=== PATIENT | male | born 2000 | race Caucasian/White ===

== ENCOUNTER 2021-01-03 11:12 | Emergency (ER) | payer OTHER ==
[~2021-01-03 11:12] MED LIST: DOXYCYCLINE HY100 MG PO; MOTRIN600 MG PO; PREDNISONE 20MG20 MG PO; VENTOLIN HFA IN18 GM INH; ZOFRAN4 MG PO
[2021-01-03 11:51] LABS: BASOPHIL 0.6 % (0-2); EOSINOPHIL 0.6 % (0-5); HCT 43.6 % (42.0-52.0); HGB 14.8 g/dl (13.2-18.0); LYMPHOCYTE 22.9 % (15-48); MCH 30.8 pg (25.0-31.0); MCHC 33.9 g/dL (32.0-36.0); MCV 90.6 fL (78.0-100.0); MONOCYTE 12.5 % (0-12); NRBC 0; PLT 293 K/uL (150-400); RBC 4.81 M/uL (4.70-6.00); RDW 12.3 % (11.5-14.0); WBC 10.6 K/uL (4.0-10.5)
[2021-01-03 12:12] LABS: BUN/CREAT RATIO (CALC) 9.5 RATIO; CREATININE 0.95 mg/dL (0.67-1.17); POTASSIUM 3.5 mmol/L (3.5-5.1)
[2021-01-03 12:12] LABS: BILIRUBIN NEGATIVE (NEGATIVE); BLOOD 3+ Ery/uL (NEGATIVE); CLARITY HAZY (CLEAR); COLOR ORANGE (YELLOW); GLUCOSE (U) NORMAL (NORMAL); LEUKOCYTES NEGATIVE Leu/uL (NEGATIVE); NITRITE NEGATIVE (NEGATIVE); PROTEIN 1+ mg/dL (NEGATIVE); UROBILINOGEN 0.2 mg/dL (0.2-1.0); pH 8.5 (5.0-9.0)
[2021-01-03 12:18] LABS: BACTERIA TRACE; URINARY RBC TNTC; URINARY WBC RARE
[2021-01-03] MEDS ORDERED: ONDANSETRON ODT4 MG PO (13:40)
[2021-01-03] MEDS ORDERED: NORCO 5-325 TA1 EACH PO (13:40)
[2021-01-03] MEDS ORDERED: FLOMAX0.4 MG PO (13:40)
== END 2021-01-03 14:19 | disposition home or self-care (01) ==
LOC: FER 11:12
PROVIDERS: Emergency Medicine
DX: N13.2 Hydronephrosis with renal and ureteral calculous obstruction (principal); R19.7 Diarrhea, unspecified; Z88.0 Allergy status to penicillin; Z91.048 Other nonmedicinal substance allergy status
CPT/HCPCS: 36415; 80048; 81001; 85025; J1170; J1885; J2270; J2405; J7030